=== PATIENT | male | born 1960 | race Caucasian/White ===

== ENCOUNTER 2022-04-22 13:16 | Emergency (ER) | payer OTHER ==
[~2022-04-22] VITALS: Ht 167.6 cm; Wt 69.2 kg
[~2022-04-22 13:16] MED LIST: ASPI81TA86 PO
[2022-04-22] MEDS ORDERED: ASPI81CH33 FT (13:40)
[2022-04-22] MEDS ORDERED: BUSP15TA47 FT (13:40)
[2022-04-22] MEDS ORDERED: LEVO100T5 FT (13:40)
[2022-04-22 14:30] VITALS: BP 146/84
[2022-04-22 14:33] VITALS: O2SAT 97
[2022-04-22] MEDS ORDERED: ISOVUE-370 76% 100ML VIAL As Ordered ONE (15:09)
[2022-04-22 15:10] LABS: VENOUS BASE EXCESS 2.5 (-2.0-2.0); VENOUS HCO3 29.4 MEQ/L (23.0-27.0); VENOUS O2 SATURATION 56.6 % (60.0-80.0); VENOUS PARTIAL PRESSURE CO2 55.2 mmHg (38.0-50.0); VENOUS PARTIAL PRESSURE O2 32.5 mmHg (30.0-50.0); VENOUS PH 7.344 UNITS (7.330-7.430); VENOUS STANDARD HCO3 25.7 MEQ/L; VENOUS TOTAL CO2 31.1 MEQ/L (24.0-28.0)
[2022-04-22 15:12] LABS: BASO % 0.2 % (0.0-1.0); EOS # 0.1 10^3/uL (0.0-0.5); EOS % 1.6 % (0.0-3.0); HEMATOCRIT 41.9 % (42.0-52.0); HEMOGLOBIN 12.7 g/dl (13.5-17.5); LYMPH % 11.4 % (24.0-44.0); MEAN CORPUSCULAR HEMOGLOBIN 20.9 pg (27.0-33.0); MEAN CORPUSCULAR HGB CONC 30.3 g/dl (32.0-36.5); MEAN CORPUSCULAR VOLUME 68.9 fl (80.0-96.0); MONO # 0.6 10^3/uL (0.0-0.8); MONO % 7.5 % (2.0-8.0); NEUTROPHILS # 6.8 10^3/uL (1.5-8.5); PLATELET COUNT, AUTOMATED 272 10^3/uL (150-450); RED BLOOD COUNT 6.08 10^6/uL (4.30-6.10); WHITE BLOOD COUNT 8.6 10^3/uL (4.0-10.0)
[2022-04-22 16:10] LABS: ALBUMIN 3.7 GM/DL (3.2-5.2); ALT/SGPT 38 U/L (12-78); BILIRUBIN,DIRECT < 0.1 MG/DL (0.0-0.2); BILIRUBIN,TOTAL 0.2 MG/DL (0.2-1.0); BLOOD UREA NITROGEN 17 MG/DL (7-18); CALCIUM LEVEL 9.2 MG/DL (8.8-10.2); CARBON DIOXIDE LEVEL 29 MEQ/L (21-32); CHLORIDE LEVEL 103 MEQ/L (98-107); CREATININE FOR GFR 0.67 MG/DL (0.70-1.30); GLOMERULAR FILTRATION RATE > 60.0 (>49); GLUCOSE, FASTING 91 MG/DL (70-100); NT-PRO BNP 85 PG/ML (<125); POTASSIUM SERUM 4.5 MEQ/L (3.5-5.1); SODIUM LEVEL 137 MEQ/L (136-145); THYROXINE (T4) 8.6 UG/DL (4.5-12.0); TOTAL PROTEIN 7.9 GM/DL (6.4-8.2)
[2022-04-22] MEDS ORDERED: PRED20TA PO (17:43)
[2022-04-22] MEDS ORDERED: dexameTHASONE 20MG/5ML VIAL (J1100 PER 1MG) IV STA (18:13)
== END 2022-04-22 18:34 | disposition home or self-care (01) ==
LOC: M ED 13:16
DX: C32.9 Malignant neoplasm of larynx, unspecified (principal); Z93.0 Tracheostomy status; M50.21 Other cervical disc displacement, high cervical region; E03.9 Hypothyroidism, unspecified; Z79.890 Hormone replacement therapy; Z79.899 Other long term (current) drug therapy
CPT/HCPCS: 70491; 71045; 71260; 80047; 80048; 80076; 82803; 83605; 83880; 84436; 84443; 85025; 87040; 87486; 87581; 87633; 87798; 93005; 93041; 94760; 96374; 99285; J1100; Q9967

== ENCOUNTER 2022-05-08 00:41 | Emergency (ER) | payer OTHER ==
[~2022-05-08] VITALS: Ht 167.6 cm; Wt 68.1 kg
[~2022-05-08 00:41] MED LIST changes: +ASPI81CH33 FT; +BUSP15TA47 FT; +LEVO100T5 FT; +PRED20TA PO
[2022-05-08 01:31] VITALS: BP 124/77
== END 2022-05-08 02:20 | disposition home or self-care (01) ==
LOC: M ED 00:41
DX: Z43.0 Encounter for attention to tracheostomy (principal); Z79.82 Long term (current) use of aspirin; Z79.899 Other long term (current) drug therapy

== ENCOUNTER → 2022-06-25 | Outpatient (CLI) | payer OTHER ==
[~2022-06-25] MED LIST changes: +PROHANCE 279.3MG/ML 15ML VIAL As Ordered ONE
== END ==
LOC: M RAD 09:30
PROVIDERS: ATTEND Internal Medicine Hematology & Oncology
DX: S46.011A Strain of muscle(s) and tendon(s) of the rotator cuff of right shoulder, initial encounter (principal); S43.431A Superior glenoid labrum lesion of right shoulder, initial encounter; X58.XXXA Exposure to other specified factors, initial encounter; Y92.9 Unspecified place or not applicable; C32.9 Malignant neoplasm of larynx, unspecified
CPT/HCPCS: 73223; A9576

== ENCOUNTER 2022-09-13 19:44 | Emergency (ER) | payer OTHER ==
[~2022-09-13 19:44] MED LIST changes: -PROHANCE 279.3MG/ML 15ML VIAL As Ordered ONE
[2022-09-13] MEDS ORDERED: NS 1,840 ML in IV 1 EA IV ONE (20:05)
[2022-09-13] MEDS ORDERED: TRANEXAMIC ACID INJection 1,000 MG in D5W 100 ML IV ONE (20:30)
[2022-09-13 20:40] LABS: BASO % 0.2 % (0.0-1.0); EOS # 0.1 10^3/uL (0.0-0.5); EOS % 0.9 % (0.0-3.0); HEMATOCRIT 33.5 % (42.0-52.0); HEMOGLOBIN 9.7 g/dl (13.5-17.5); LYMPH # 1.9 10^3/uL (1.5-5.0); LYMPH % 18.6 % (24.0-44.0); MEAN CORPUSCULAR VOLUME 72.7 fl (80.0-96.0); MONO # 0.6 10^3/uL (0.0-0.8); NEUTROPHILS # 7.4 10^3/uL (1.5-8.5); NEUTROPHILS % 73.7 % (36.0-66.0); PLATELET COUNT, AUTOMATED 377 10^3/uL (150-450); RED BLOOD COUNT 4.61 10^6/uL (4.30-6.10)
[2022-09-13 20:49] LABS: BILIRUBIN,DIRECT < 0.1 MG/DL (<0.4)
[2022-09-13 20:55] LABS: ALBUMIN 2.5 G/DL (3.2-5.2); ALKALINE PHOSPHATASE 92 U/L (46-116); ALT/SGPT 27 U/L (7.0-40); AST/SGOT 30 U/L (<34); BILIRUBIN,TOTAL 0.3 MG/DL (0.3-1.2); BLOOD UREA NITROGEN 19 MG/DL (9-23); CALCIUM LEVEL 8.1 MG/DL (8.3-10.6); CARBON DIOXIDE LEVEL 20 MMOL/L (20-31); CHLORIDE LEVEL 94 MMOL/L (98-107); GLOMERULAR FILTRATION RATE > 60.0 (>49); GLUCOSE, FASTING 491 MG/DL (74-106); POTASSIUM SERUM 4.4 MMOL/L (3.5-5.1); SODIUM LEVEL 132 MMOL/L (136-145); TOTAL PROTEIN 5.3 G/DL (5.7-8.2)
[2022-09-13 20:56] LABS: RSV AMPLIFICATION NEGATIVE (NEGATIVE)
[2022-09-13 20:58] LABS: INR 1.07; PARTIAL THROMBOPLASTIN TIME 22.8 SECONDS (24.8-34.2); PROTHROMBIN TIME 14.1 SECONDS (12.5-14.5)
[2022-09-13] MEDS ORDERED: ISOVUE-370 76% 100ML VIAL As Ordered ONE (21:01)
[2022-09-13] MEDS ORDERED: LORazepam 2 MG/ML VIAL IV STA (21:06)
[2022-09-13] MEDS ORDERED: NS 1,000 ML IV ONE (22:10)
[2022-09-13] MEDS ORDERED: CALCIUM GLUCONATE 1,000MG/10ML VIAL (100MG/ML) IV ONE (22:30)
[2022-09-13 23:38] VITALS: BP 89/53
[2022-09-13 23:43] VITALS: BP 79/52
[2022-09-13 23:48] VITALS: BP 94/50
[2022-09-13 23:51] VITALS: BP 102/52
[2022-09-14 00:28] VITALS: BP 122/58
== END 2022-09-14 00:30 | disposition short-term general hospital (02) ==
LOC: EDBD 19:44 → M ED 19:44
DX: J95.01 Hemorrhage from tracheostomy stoma (principal); D38.0 Neoplasm of uncertain behavior of larynx; R00.0 Tachycardia, unspecified; N18.9 Chronic kidney disease, unspecified; Z86.79 Personal history of other diseases of the circulatory system; Z79.82 Long term (current) use of aspirin; Z79.83 Long term (current) use of bisphosphonates; Z79.899 Other long term (current) drug therapy
CPT/HCPCS: 36430; 70498; 71045; 71260; 80047; 80048; 80076; 83605; 84484; 85025; 85610; 85730; 86850; 86900; 86901; 86920; 86927; 87631; 93005; 93041; 94760; 96374; 96375; 99285; J2060; P9012; P9016; P9017